=== PATIENT | female | born 1960 | race American Indian/Alaskan Native ===

== ENCOUNTER → 2018-06-21 | Outpatient (CLI) | payer MEDICARE, OTHER ==
[~2018-06-21] MED LIST: AMITRIPTYLINE H10 M1 PO; APIDRA; ASPIRIN EC81 M1; B-12500 MCG PO; CALCIUM500 MG PO; CARBAMAZEPINE100 MG; CYMBALTA30 MG; CYMBALTA60 MG; FISH OIL 1,001000 M2 PO; FLEXERIL PO; LANTUS; LOPRESSOR25 PO; METHADONE HCL 110 M1; NEURONTIN 300300 M1 PO; NOVOLOG INSULIN SUBQ; OMEPRAZOLE40 MG; PROMETHAZINE HC25 M1 PO; SIMVASTATIN5 MG; STOOL SOFTENER100 MG PO; SYNTHROID125 MC1 PO; TRAMADOL 50 MG50 MG PO; UNICOMPLEX M TA1 TA1 PO; ZOCOR20 MG PO; ZUPLENZ4 MG
--- NOTE | 2018-07-23 10:00 | PAINCON ---
[address] [address] PAIN MANAGEMENT CONSULTATION Name: JUAN LUIS VALENZUELA Room: [facility].#: [id number] Admission: 06/21/18 Attend Phys: Quyen Miller MD Discharge: Date of : 58 Report #: [id number] THIS REPORT FOR: //name// CC: Destiney Miller DATE OF SERVICE: 06/21/2018 CHIEF COMPLAINT: Low back pain, shoulder pain as well as pain "all over." HISTORY OF PRESENT ILLNESS: The patient is a 57-year-old female who has come to the Pain Clinic with history of chronic pain for quite a number of years. She describes it as unbearable. It involves her lower back, neck, shoulders and is "all over." She notes that the pain eases if she sits down. The pain is worse when she is standing, walking, and engaging in activities of daily living. Describes it as continuous, steady, constant, shooting, cramping, aching, crushing, throbbing, pounding, sharp, stabbing, and tender. Rates her pain as a 9/10. The patient states she has had injections in the past. She does not recall a long-term benefit from this. The patient rates her pain as a 9/10. In fact, the patient states that she hurts to be touched. ALLERGIES: SULFA, PENICILLIN, METHADONE. CURRENT MEDICATIONS: Calcium, multivitamin, stool softener, vitamin B12, vitamin D3, fish oil, simvastatin 10 mg daily, tramadol 2-3 tablets daily 50 mg, metoprolol 1 tablet 25 mg daily, insulin pump since age 16, cyclobenzaprine 1 t.i.d. 10 mg, Cymbalta 60 mg, gabapentin 4 tablets 300 mg t.i.d., levothyroxine 125 mcg, omeprazole 140 mg tablet daily. PAST MEDICAL HISTORY: Type 1 diabetes, lumbar spinal stenosis, hyperlipidemia, posttraumatic stress disorder, depression, panic attacks, asthma, thyroid disease, stomach problems, emotional problems, joint disease/arthritis, fibromyalgia. PAST SURGICAL HISTORY: Total hysterectomy in 1992, gastric bypass in 2005, carpal tunnel in 2009, left foot fracture repair in 2000, 1992 C section/sterilization, cataract surgery in 2011. SOCIAL HISTORY: She is a retired teacher. She is not working at this juncture, has not worked since 2009. REVIEW OF SYSTEMS: Weight changes, fatigue, weakness, headaches, wears glasses, blurred vision, cataracts, hearing loss, earaches, chronic sinus problems, mouth sores, swollen glands in neck, chest pain/angina, palpitations, shortness of breath walking or lying flat, swelling of feet and ankles, shortness of breath, [place] [address] PAIN MANAGEMENT CONSULTATION Name: JUAN LUIS VALENZUELA Room: [facility]#: [id number] Admission: 06/21/18 Attend Phys: Quyen Miller MD Discharge: Date of : 58 Report #: [id number] asthma, wheezing, change in bowel movements, nausea, vomiting, diarrhea, painful bowel movements, frequent urination, painful urination, awakens at night to urinate, change in the force of urination, incontinence, sores, discharges, sexual difficulty, glandular/hormone problems, thyroid disease, diabetes, excessive thirst, hot and cold intolerance, joint pain, joint stiffness, joint weakness, muscle pain, back pain, difficulty walking, rash and itching, changes in nails, frequent recurring headaches, lightheadedness, numbness and tingling, memory loss, nervousness, depression, insomnia, slow to heal. LABORATORY DATA: No new laboratory values are available at the time of our interview. PAIN CLINIC ASSESSMENT: 1. The patient does have arthritic changes. 2. Height 5 feet 9 inches, weight 300 pounds, BMI is 46. 3. Blood pressure 152/82, heart rate 84, respiratory rate 16, room air saturation 95%, temperature 98.3. 4. Pain score: 9/10. 5. Fall risk: The patient has not fallen in the last 3 months. 6. Blood thinner: The patient is not on blood thinning medication. 7. Hypertension: The patient is not being treated for hypertension. 8. Opioid therapy: The patient is not a regular opioid medication. She has been using tramadol. 9. Risk assessment tool. 10. Functional assessment tool. 11. Recreational drug use: The patient denies use of recreational drugs. 12. Tobacco: The patient does not smoke. 13. Alcohol: The patient denies infrequent use of alcoholic beverages. PHYSICAL EXAMINATION: GENERAL: The patient is a well-developed, white female. She is morbidly obese. Her affect is somewhat unenergetic. She is alert and oriented x 3. HEENT: Normocephalic, atraumatic. Extraocular eye muscles intact. Sclerae nonicteric. Mucous membranes are moist. NECK: Without adenopathy or JVD. Good range of motion. HEART: Regular rate. S1 and S2. LUNGS: Difficult to appreciate given the patient's body habitus, but without rhonchi or rales. MUSCULOSKELETAL: Upper extremity muscle strength is judged to be 5-/5 for the major muscle groups in the upper extremity. The patient is without significant scoliosis, kyphosis or lordosis. Lower extremity muscle strength is judged to be generally 5/5 for the major muscle groups. Difficult to appreciate deep tendon reflexes or ankle jerks. The patient has global tenderness and numerous areas of pain and soreness to palpation. IMPRESSION: [facility] [address] [place] [address] PAIN MANAGEMENT CONSULTATION Name: JUAN LUIS VALENZUELA Room: [facility] Almodovar#: [id number] Admission: 06/21/18 Attend Phys: Quyen Miller MD Discharge: Date of : 58 Report #: [id number] 1. Chronic pain at the lumbar back. 2. History of spinal stenosis. 3. Type 1 diabetes. 4. Hyperlipidemia. 5. Posttraumatic stress disorder. 6. Depression. 7. Panic attacks. 8. Asthma. 9. Thyroid disease. 10. Stomach problems. 11. Emotional problems. 12. Joint disease/arthritis. 13. Fibromyalgia. RECOMMENDATIONS: We discussed treatment options with the patient. We have explained that there is no real good treatment for fibromyalgia except exercise 45 minutes 3 times a week. The patient's body habitus makes it much more difficult to achieve that goal. I think she should continue to work for that. The patient states that she has had some injections in the low back area in the past because of spinal stenosis. She continues to have some generalized pain, which I think only exercises are going to be helpful with including her neck, shoulders, and hips, and I think the patient should continue to work towards that goal. She does have some problems with sleep. I am not sure that opioid medications would be very helpful at this juncture, maybe a low dose for a limited period of time might be helpful in getting the patient going in the right direction. At this juncture, we will try amitriptyline 10 mg p.o. at bedtime and possibly increase this to see whether or not this would be efficacious and helpful with sleep. Unfortunately, the patient has a difficult problem. Physical therapy with the thought of water aerobics might be efficacious as well. She will follow up in the near future. We would like to thank you for letting us participate in her care. We hope she continues to improve. <ELECTRONICALLY SIGNED> By: Quyen Miller MD 07/23/18 [id number]. Rigoberto Miller MD /nt
== END ==
LOC: M.PC 06-05 04:27
DX: M48.061 Spinal stenosis, lumbar region without neurogenic claudication (principal); E11.9 Type 2 diabetes mellitus without complications; E78.5 Hyperlipidemia, unspecified; J45.909 Unspecified asthma, uncomplicated; M19.90 Unspecified osteoarthritis, unspecified site; G89.29 Other chronic pain; M79.7 Fibromyalgia; E07.9 Disorder of thyroid, unspecified; F41.0 Panic disorder [episodic paroxysmal anxiety]; F98.9 Unspecified behavioral and emotional disorders with onset usually occurring in childhood and adolescence; F32.9 Major depressive disorder, single episode, unspecified; R10.9 Unspecified abdominal pain